=== PATIENT | female | born 1930 | race Caucasian/White ===

== ENCOUNTER 2017-12-24 22:11 | Inpatient (IN) | payer OTHER ==
[~2017-12-24] VITALS: Ht 147.3 cm; Wt 62.6 kg
[~2017-12-24 22:11] MED LIST: ALPHAGAN P100 DROP/1 BOTH EYES; CALCIUM + D3 E1 EACH PO; FOLIC ACID1 MG PO; IRON325 M1 PO; LEUCOVORIN CALCI5 MG PO; LIPITOR40 MG PO; LUMIGAN 0.50 DROP/22 BOTH EYES; MULTIPLE VITAM1 EACH PO; NEURONTIN100 MG PO; ORENCIA250 MG/10 IV; PLAQUENIL200 MG PO; PLAVIX75 MG PO; PREDNISONE1 MG PO; PRILOSEC20 MG PO; RASUVO 12.12.5 MG/0. SC; RECLAST5 MG/100 M IV; SINEQUAN10 MG PO; SYNTHROID50 MCG PO; TOLTERODINE TART4 MG PO; TOPROL XL50 MG PO
[2017-12-25 10:51] VITALS: BP 124/89
[2017-12-25 16:24] VITALS: BP 108/66
[2017-12-25 19:22] VITALS: BP 101/65
[2017-12-25 23:07] VITALS: BP 153/88
[2017-12-26 05:22] VITALS: BP 139/77
[2017-12-26 06:21] LABS: HEMATOCRIT 34.2 % (36.0-46.0); HEMOGLOBIN 10.9 G/DL (11.9-15.5); MCV 91.4 FL (83-99)
[2017-12-26 07:30] VITALS: BP 148/83
[2017-12-26] MEDS ORDERED: HYDROCODON-ACE1 EAC7 PO (09:01)
== END 2017-12-26 14:24 | disposition home or self-care (01) | DRG 483 ==
LOC: ENRESERV 22:11 → 3EAST 12-25 09:22 → 2SOUTH 12-25 09:22 → ENRESERV 12-25 14:51 → 3EAST 12-25 16:14
PROVIDERS: Orthopaedic Surgery
PROC: 0RRK00Z Replacement of Left Shoulder Joint with Reverse Ball and Socket Synthetic Substitute, Open Approach (ICD-10-PCS; principal; 2017-12-25)
DX: M19.012 Primary osteoarthritis, left shoulder (principal); I10 Essential (primary) hypertension; E03.9 Hypothyroidism, unspecified; E78.5 Hyperlipidemia, unspecified; K21.9 Gastro-esophageal reflux disease without esophagitis; M06.9 Rheumatoid arthritis, unspecified; M67.412 Ganglion, left shoulder; Z79.02 Long term (current) use of antithrombotics/antiplatelets; Z85.828 Personal history of other malignant neoplasm of skin; Z86.73 Personal history of transient ischemic attack (TIA), and cerebral infarction without residual deficits
CPT/HCPCS: 85014; 85018; 94799; J0131; J0690; J1100; J2250; J2405; J2710; J2795; J3010; J7030; J7050; J7512; J7643; Q0175